=== PATIENT | male | born 1950 | race Caucasian/White ===

== ENCOUNTER 2017-08-17 19:49 | Emergency (ER) | payer OTHER ==
[~2017-08-17] VITALS: Ht 170.2 cm; Wt 70.3 kg
[~2017-08-17 19:49] MED LIST: ALLERGY RELIEF60 MG PO; BENZONATATE200 MG PO; CELEXA20 MG; CELEXA40 MG PO; CYMBALTA60 MG PO; IBUPROFEN 800800 M1 PO; LOPRESSOR50 PO; PNV FOLIC ACID1 EACH PO; REMERON15 M2 PO; TOPROL XL50 MG PO; TYLENOL325 MG PO; VITAMIN B-1100 M1 PO
== END 2017-08-17 21:43 | disposition home or self-care (01) ==
LOC: ER 19:49
DX: F10.129 Alcohol abuse with intoxication, unspecified (principal); F41.9 Anxiety disorder, unspecified; I12.9 Hypertensive chronic kidney disease with stage 1 through stage 4 chronic kidney disease, or unspecified chronic kidney disease; N18.9 Chronic kidney disease, unspecified; J44.9 Chronic obstructive pulmonary disease, unspecified

== ENCOUNTER 2021-04-14 15:33 | Inpatient (IN) | payer OTHER ==
[~2021-04-14] VITALS: Ht 180.3 cm; Wt 68.0 kg
--- NOTE | ~2021-04-14 | EMS ---
[address] [address] EMS Patient Care Report Name: FRANCIE BEATTY Room #: REG [facility].#: [id number] Admission: 04/14/21 Attend Phys: Discharge: Date of : 52 Report #: [id number] THIS REPORT FOR: //name// Report Transmitted: 04/14/2021 17:12 EMS Care Summary [place], [place]/[facility] Incident [id number] @ 04/14/2021 15:00 Incident Location [address] [place], [place] [id number] Patient FRANCIE BEATTY Male, 70 Years 1950 Patient Address [address] [place], [place] [id number] Patient History Alcohol Abuse, Patient Allergies No known allergies, Patient Medications None Reported, Chief Complaint WEAKNESS, ALCOHOL WITHDRAWL Disposition Transported No Lights/[place] Dispatch Reason Sick Person Transported To [facility] Narrative PT IS SITTING OUTSIDE IN THE PARKING LOT. HE ADMITS TO BEING TOO WEAK TO GET UP. HE JUST WANTS TO GO BACK TO HIS APARTMENT. AFTER A DISCUSSION WITH THE PT ON HIS ABILITY TO CARE FOR HIMSELF IF ASSISTED BACK UPSTARIS, HE AGREES HE SHOULD GO TO THE ER. HE ADMITS TO BEING A DAILY DRINKER WITHOUT A DRINK FOR [address] [address] EMS Patient Care Report Name: FRANCIE BEATTY Room #: REG [facility].#: [id number] Admission: 04/14/21 Attend Phys: Discharge: Date of : 52 Report #: [id number] THREE DAYS. HE ALSO ADMITS TO NOT EATING OR DRINKING IN ABOUT A WEAK. HE HAS NO COMPALAINTS OF PAIN. EN ROUTE TO THE ER THERE ARE NO CHANGES. PT IS TRANSPORTED WITH [facility]. CARE TO RN. Initial Vitals @15:18GCS: 15, @15:18P: 102,R: 16,BP: 105/66,Pain: 0/10,GCS: 15,Revised Trauma: 12, @15:19P: 103,R: 18,BP: 99/62,Pain: 0/10,GCS: 15,SpO2: 98,Revised Trauma: 12, Assessments @15:23MENTAL:No Abnormalities,SKIN:Jaundiced,Pale,HEENT:Head/Face: No Abnormalities,Neck/Airway: No Abnormalities,LUNG SOUNDS:General: No Abnormalities,ABDOMEN:General: No Abnormalities,PELVIS//GI:No Abnormalities,EXTREMITIES:Left Leg: Weakness,Left Arm: Weakness,Right Leg: Weakness,Right Arm: Weakness,PULSE:Radial: 2+ Normal,NEURO: Impression Generalized Weakness Procedures @15:18ALS AssessmentResponse: UnchangedSucceeded Timeline 14:59,Call Received 14:59,Dispatch Notified 15:00,Dispatched 15:01,En Route 15:14,On Scene 15:15,At Patient 15:18,BP: 105/66 M,PULSE: 102,RR: 16 R,SPO2: Ox,ETCO2: ,BG: ,PAIN: 0,GCS: 15, 15:18,ALS Assessment,Response: UnchangedSucceeded, 15:18,BP: / M,PULSE: ,RR: R,SPO2: Ox,ETCO2: ,BG: ,PAIN: ,GCS: 15, 15:19,BP: 99/62 M,PULSE: 103,RR: 18 R,SPO2: 98 Ox,ETCO2: ,BG: ,PAIN: 0,GCS: 15, 15:22,Depart Scene 15:34,At Destination 16:05,Call Closed Disclaimer v1.1 Copyright 2020 [employer] This EMS Care Summary contains data elements from the applicable legal record (which may be displayed differently). It is designed to provide pertinent information for the following purposes: continuity of care, clinical quality, and state data reporting. The complete legal record is available to ED staff and administrators of the receiving hospital in [employer]'s Patient Tracker. All data is provided "as is."
[~2021-04-14 15:33] MED LIST changes: +NORCO 5-325 TA1 EACH PO
[2021-04-14 15:34] VITALS: BP 106/58
[2021-04-14 16:05] LABS: ABSOLUTE NEUTROPHILS 6.1 thou/uL (1.4-8.2); EOSINOPHILS 1.3 % (0.0-3.0); HEMATOCRIT 32.5 % (42.0-52.0); HEMOGLOBIN 11.3 gm/dL (14.0-18.0); LYMPHOCYTES 15.2 % (24.0-44.0); MCH 36.1 pg (26.0-34.0); MCHC 34.9 g/dL (28.0-37.0); MCV 103.7 fL (80.0-100.0); MONOCYTES 9.9 % (1.0-8.0); PLATELET COUNT 131 thou/uL (150-400); POLYS 72.6 % (36.0-66.0); RBC 3.13 mil/uL (4.50-6.00); RDW 15.3 % (10.5-14.5); WBC 8.4 thou/uL (4.0-11.0)
[2021-04-14 16:20] LABS: ALBUMIN 3.8 g/dL (3.4-5.0); CALCIUM 9.7 mg/dL (8.5-10.1); CREATININE 1.7 mg/dL (0.7-1.3); TOTAL PROTEIN 7.9 g/dL (6.4-8.2)
[2021-04-14 16:21] LABS: POTASSIUM 2.9 mmol/L (3.5-5.1)
[2021-04-14 20:49] LABS: PHOSPHORUS 1.7 mg/dL (2.6-4.7)
[2021-04-14 21:16] LABS: FOLIC ACID 4.2 ng/mL (8.6-58.9)
[2021-04-15 06:13] VITALS: BP 117/34
[2021-04-15 06:28] LABS: CALCIUM 8.4 mg/dL (8.5-10.1); CREATININE 1.2 mg/dL (0.7-1.3); POTASSIUM 3.7 mmol/L (3.5-5.1)
[2021-04-15 06:49] VITALS: BP 119/41
--- NOTE | 2021-04-15 07:13 | EKG ---
[address] [address] ELECTROCARDIOGRAM REPORT Name: FRANCIE BEATTY Tess Room #: 362-P ADM IN M.R.#: [id number] Admission: 04/14/21 Attend Phys: Mu Landeros MD Discharge: Date of : 52 Report #: [id number] [facility] ED Test Date: 2021-04-14 Test Time: 20:19:16 Pat Name: FRANCIE BEATTY Department: Room: 362 Gender: M Telephone Cleaner: yoseph : 1950 Requested By: Althea Sánchez Order Number: [id number] MD: Steffen Don Measurements Intervals [place] Rate: 67 P: -32 [place]: 149 QRS: -40 QRSD: 105 T: 12 QT: 401 QTc: 424 Interpretive Statements Sinus rhythm Left anterior fascicular block Compared to ECG 03/07/2011 13:25:57 Left anterior fascicular block now present Left-axis deviation no longer present Electronically Signed On 04-15-2021 7:13:14 CDT by Steffen Don [email or web address] <ELECTRONICALLY SIGNED> By: Steffen Don MD, [facility] 04/15/21 0713 18 18 Steffen Don MD, [facility] /EPI
[2021-04-15 08:10] VITALS: BP 130/69
--- NOTE | 2021-04-15 15:15 | NUR ---
INITIAL ASSESSMENT: Received consult for discharge planning. ANDRES reviewed chart and spoke with nursing and attending physician. Pt was admitted from home due to falls/debility. Pt with hx of daily ETOH use. ANDRES met with pt at bedside. Introduced role of SW. Pt is alert/orientated x 4. Pt reports he lives at home alone in an apt. Pt states there are 26 steps to get up to his apt. No elevator access available. Pt has a cane and states he normally is able to navigate the stairs. No hx of HH services. Pt has been on [facility] in the past. Pt's PCP is Dr. Garcia. Pt states that his sister, Eve, is supportive. Pt has had both [employer] vaccines ([place]). Pt states he is ready to discharge home. SW discussed possible HH services with pt. Pt states he will think about it. SW is following to assist as needed with discharge planning.
[2021-04-15 15:42] VITALS: BP 114/63
--- NOTE | 2021-04-15 17:58 | NUR ---
PATIENT ARRIVED THIS MORNING FROM ER TO ROOM 362 CCU STATUS WITHOUT COMPLICATION. ADMISSION DATABASE COMPLETED, INFORMATION FROM PATIENT. ORDERS REVIEWED AND INITATED. QUESTIONS AND CONCERNS WERE ADDRESSED. PATIENT'S SISTER CALLED AND WAS UPDATED OVER THE PHONE.
[2021-04-15 20:25] VITALS: BP 132/64
[2021-04-16 04:14] VITALS: BP 128/60
[2021-04-16 05:24] LABS: HEMATOCRIT 29.9 % (42.0-52.0); HEMOGLOBIN 10.3 gm/dL (14.0-18.0); MCH 36.3 pg (26.0-34.0); MCHC 34.5 g/dL (28.0-37.0); MCV 105.3 fL (80.0-100.0); RBC 2.84 mil/uL (4.50-6.00); RDW 14.8 % (10.5-14.5); WBC 6.4 thou/uL (4.0-11.0)
[2021-04-16 05:33] LABS: ALBUMIN 3.1 g/dL (3.4-5.0); CALCIUM 8.3 mg/dL (8.5-10.1); MAGNESIUM 1.3 mg/dL (1.8-2.4); POTASSIUM 3.5 mmol/L (3.5-5.1); TOTAL BILIRUBIN 0.8 mg/dL (0.2-1.0); TOTAL PROTEIN 6.6 g/dL (6.4-8.2)
[2021-04-16 07:49] VITALS: BP 108/59
[2021-04-16] MEDS ORDERED: PRENATAL PO (13:33)
[2021-04-16] MEDS ORDERED: VITAMIN B-1100 M2 PO (13:33)
[2021-04-16] MEDS ORDERED: LORAZEPAM 1 MG T1 MG PO (13:33)
[2021-04-16] MEDS ORDERED: PROAIR HFA8.5 GM INH (13:33)
[2021-04-16] MEDS ORDERED: PEPCID20 MG PO (13:33)
[2021-04-16 14:21] VITALS: BP 108/59
--- NOTE | 2021-04-16 14:30 | NUR ---
DISCHARGE NOTE: ANDRES reviewed chart and spoke with nursing and attending physician. Pt is medically stable for discharge home today with HH services. ANDRES met with pt at bedside to discuss discharge plan. Pt is agreeable with having HH services. Options provided for HH agencies. No preference voiced. ANDRES confirmed pt's home address and phone number. Pt states he will need transportation home. SW offered to call his sister to provide update. Pt declines offer and states that he keeps her updated. ANDRES notified [facility] liaison of new referral. Info faxed to the office. ANDRES faxed finalized discharge orders/summary to HH. Notified liaison. Contact info for HH placed in pt's discharge summary. Cab voucher # [phone] provided. Nursing to call cab when pt is ready for discharge. No additional SW needs identified at this time, but is available to assist should needs arise.
[2021-04-16 15:27] VITALS: BP 108/59
--- NOTE | 2021-04-16 15:57 | NUR ---
BPCI letter and preferred provider list provider to patient, lives in home setting
--- NOTE | 2021-04-16 15:58 | NUR ---
BPCI letter and preferred provider list provided to patient and family, lives in long term setting
--- NOTE | 2021-04-16 16:04 | NUR ---
CLARIFICATION - incorrect notation placed on last note - correction is patient does live in home setting
--- NOTE | 2021-04-16 16:20 | NUR ---
PT DISCHARGED TO HOME WITH HOME HEALTH. CAB VOUCHER GIVEN TO PATIENT...INSTRUCTED ON IMPORTANCE OF ALCOHOL CESSASATION.
== END 2021-04-16 16:25 | disposition home health service (06) | DRG 682 ==
LOC: ER 15:33 → 3W 19:58 → EROBS 19:58 → 3W 04-15 07:04
PROVIDERS: Emergency Medicine; Nurse Practitioner Family; ADMIT Internal Medicine; ATTEND Internal Medicine
DX: N17.9 Acute kidney failure, unspecified (principal); G93.41 Metabolic encephalopathy; E87.2 Acidosis; E87.6 Hypokalemia; F10.129 Alcohol abuse with intoxication, unspecified; F41.9 Anxiety disorder, unspecified; F32.9 Major depressive disorder, single episode, unspecified; J44.9 Chronic obstructive pulmonary disease, unspecified; I12.9 Hypertensive chronic kidney disease with stage 1 through stage 4 chronic kidney disease, or unspecified chronic kidney disease; N18.9 Chronic kidney disease, unspecified; E83.42 Hypomagnesemia; F17.210 Nicotine dependence, cigarettes, uncomplicated; R53.81 Other malaise; Z79.899 Other long term (current) drug therapy
CPT/HCPCS: 10879

== ENCOUNTER 2021-08-09 14:04 | Inpatient (IN) | payer OTHER ==
[~2021-08-09] VITALS: Ht 170.2 cm; Wt 58.3 kg
--- NOTE | ~2021-08-09 | HC ---
[facility] [place] [address] CONSULTATION Name: FRANCIE BEATTY Room #: 439-P ADM IN M.R.#: [id number] Admission: 08/09/21 Attend Phys: Mu Landeros MD Discharge: Date of : 52 Report #: [id number] THIS REPORT FOR: cc: Segundo Garcia James A. DO Smithson, David G. MD ~ DATE OF SERVICE: 08/11/2021 HISTORY OF PRESENT ILLNESS: A 70-year-old white male admitted through the Emergency Room with mental status changes, severe generalized weakness, unable to get out of bed. House was noted to be in severe disarray. He was diagnosed with an [id number]-[id number] toxic metabolic encephalopathy, severe debilitation, depression, recurrent severe hypokalemia, leukocytosis, history of chronic alcohol abuse, COPD. We are seeing him in rehabilitation medicine consultation. PAST MEDICAL HISTORY: Includes anxiety, depression, hypertension, COPD, chronic kidney disease, smoker of one-half pack per day, alcohol use but he had indicated he had not been drinking alcohol of late and was just more depressed. History of chronic tobacco abuse. He likes to smoke cigars. MEDICATIONS: Please see the full medication listing. ALLERGIES: No known drug allergies. HABITS: As noted above. Claims he has not had any recent alcohol, likes to smoke cigars. SOCIAL HISTORY: Lives alone, apartment 26 steps, used a cane in the community, did some furniture walking, is noted to have parent as support. When paramedics arrived on the scene, the patient was noted to be severely unkempt and the house in significant disarray. PHYSICAL EXAMINATION: GENERAL: He is a 70-year-old, slender, white male, in no obvious distress. VITAL SIGNS: Last recorded temperature 36.5, pulse 65, respirations 18, blood pressure 106/75. NEUROLOGIC: The patient is alert. He will follow basic 1-step commands. Some latency to his responses is noted. Facies are symmetric. Functional range of motion of both upper extremities, strength is a grade 4-/5. DTRs are trace to 1. His lower extremities, no focal calf swelling. Functional range of motion with strength grade 3+ to 4-/5. He was standby assistance to come to stand, min assist ambulated short distance with a front-wheeled walker. He is needing mod assist for lower body dressing and OT. He does have some mild cognitive and memory deficits. ASSESSMENT: A 70-year-old male with the following problems: [address] [address] CONSULTATION Name: FRANCIE BEATTY Room #: 439-P [facility] IN .R.#: [id number] Admission: 08/09/21 Attend Phys: Mu Landeros MD Discharge: Date of : 52 Report #: [id number] 1. Toxic metabolic encephalopathy that appears to be improving. 2. Generalized weakness and debilitation. 3. Depression. Psychiatry is consulted with his altered mental status. 4. Recurrent severe hypokalemia. 5. Leukocytosis. 6. History of chronic alcohol abuse. Denies any recent alcohol abuse. 7. Hypertension. 8. Chronic obstructive pulmonary disease, likes to smoke cigars. PLAN: The patient is a candidate for an acute [address] [place] [address] inpatient rehabilitation stay. We would anticipate a short length of stay with the goal of improving strength and endurance and cognition. He does have 26 steps up to his apartment and only has limited supports, so he will need to further improve as far as overall endurance and independence. Thank you for asking us to assist in this patient's care. By: 1236 [id number] Fede David MD /nt
--- NOTE | ~2021-08-09 | EMS ---
[address] [address] EMS Patient Care Report Name: FRANCIE BEATTY [id number] Admission: 08/09/21 Attend Phys: Discharge: Date of : 52 Report #: [id number] THIS REPORT FOR: //name// Report Transmitted: 08/09/2021 14:25 EMS Care Summary [place], [place]/[facility] Incident [id number] @ 08/09/2021 13:19 Incident Location [address] [place] [address] Patient FRANCIE BEATTY Male, 70 Years 1950 Patient Address [address] [place], [place] [id number] Patient History Alcohol Abuse, Patient Medications None Reported, Chief Complaint diarrhea Disposition Transported No Lights/[place] Dispatch Reason Sick Person Transported To [facility] Narrative pt found seated on couch covered in dried diarrhea. friends came over to do a welfare check and called for ambulance. pt is a&o and initially states he will not go to ER because he "hates doctors". he reports no appetite and diarrhea for 1 month. he now c/o general weakness and dizziness when he ambulates. pt [facility] [address] [place] [address] EMS Patient Care Report Name: FRANCIE BEATTY Room #: REG [facility] Herman#: [id number] Admission: 08/09/21 Attend Phys: Discharge: Date of : 52 Report #: [id number] apt is covered in diarrhea. pt finally agrees to eval at [facility]. pt assist to cot, VS, IV, transport w/o change. Initial Vitals @13:40P: 77,R: 18,BP: 101/68,Pain: 0/10,GCS: 15,Glucose: 269,SpO2: 100,Revised Trauma: 12, Assessments @13:27MENTAL:No Abnormalities,SKIN:Other,HEENT:Head/Face: No Abnormalities,LUNG SOUNDS:General: Diarrhea,ABDOMEN:General: Diarrhea,PELVIS//GI:EXTREMITIES:PULSE:Radial: 2+ Normal,NEURO:Other, Impression Diarrhea Procedures @13:37StretcherResponse: Unchanged@13:47Saline Lock 10cc (20 ga) Site: Antecubital-RightResponse: UnchangedSucceeded@13:403-Lead ECGResponse: Unchanged@13:27ALS Assessment Timeline 13:17,Call Received 13:17,Dispatch Notified 13:19,Dispatched 13:20,En Route 13:25,On Scene 13:27,At Patient 13:27,ALS Assessment, 13:37,Stretcher,Response: Unchanged 13:40,3-Lead ECG,Response: Unchanged 13:40,BP: 101/68 M,PULSE: 77,RR: 18 R,SPO2: 100 Ox,ETCO2: ,B,PAIN: 0,GCS: 15, 13:47,Saline Lock 10cc 20 ga Site: Antecubital-Right,Response: UnchangedSucceeded, 13:49,Depart Scene 13:57,At Destination 14:23,Call Closed Disclaimer v1.1 Copyright 2020 [employer] This EMS Care Summary contains data elements from the applicable legal record (which may be displayed differently). It is designed to provide pertinent information for the following purposes: continuity of care, clinical quality, and state data reporting. The complete legal record is available to ED staff and administrators of the receiving hospital in [employer]'s Patient Tracker. All data is provided "as is."
[~2021-08-09 14:04] MED LIST changes: +LORAZEPAM 1 MG T1 MG PO; +PEPCID20 MG PO; +PRENATAL PO; +PROAIR HFA8.5 GM INH; +VITAMIN B-1100 M2 PO
[2021-08-09 14:05] VITALS: BP 92/56
[2021-08-09 14:47] LABS: ABSOLUTE NEUTROPHILS 10.5 thou/uL (1.4-8.2); BASOPHILS 0.5 % (0.0-2.0); EOSINOPHILS 1.5 % (0.0-3.0); HEMATOCRIT 27.9 % (42.0-52.0); HEMOGLOBIN 9.6 gm/dL (14.0-18.0); LYMPHOCYTES 8.6 % (24.0-44.0); MCH 36.3 pg (26.0-34.0); MCHC 34.4 g/dL (28.0-37.0); MCV 105.5 fL (80.0-100.0); MONOCYTES 3.2 % (1.0-8.0); PLATELET COUNT 117 thou/uL (150-400); POLYS 86.2 % (36.0-66.0); RBC 2.64 mil/uL (4.50-6.00); RDW 17.2 % (10.5-14.5); WBC 12.1 thou/uL (4.0-11.0)
[2021-08-09 15:08] LABS: ALBUMIN 2.7 g/dL (3.4-5.0); CALCIUM 8.6 mg/dL (8.5-10.1); CREATININE 1.1 mg/dL (0.7-1.3); TOTAL BILIRUBIN 1.1 mg/dL (0.2-1.0); TOTAL PROTEIN 6.6 g/dL (6.4-8.2)
[2021-08-09 15:12] LABS: POTASSIUM 2.9 mmol/L (3.5-5.1)
--- NOTE | 2021-08-09 16:29 | EKG ---
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: PHIL : 1950 Requested By: Nadeem Tavarez Order Number: [id number] MD: Steffen Don Measurements Intervals [place] Rate: 73 P: -39 SD: 124 QRS: -20 QRSD: 101 T: 89 QT: 405 QTc: 447 Interpretive Statements Sinus rhythm Borderline left axis deviation Low voltage, extremity leads Abnormal R-wave progression, early transition Baseline wander in lead(s) V6 Compared to ECG 04/14/2021 20:19:16 Low QRS voltage now present ST (T wave) deviation now present Left anterior fascicular block no longer present Electronically Signed On 08-09-2021 16:29:42 CDT by Steffen Don [email or web address] <ELECTRONICALLY SIGNED> By: Steffen Don MD, [facility] 08/09/21 1629 1417 1417 Steffen Don MD, [facility] /EPI
[2021-08-09 19:17] LABS: URINE BILIRUBIN 2+ (Negative); URINE BLOOD TRACE (Negative); URINE CLARITY CLEAR; URINE COLOR BROWN; URINE GLUCOSE-RANDOM* NEGATIVE (Negative); URINE KETONES TRACE (Negative); URINE LEUKOCYTES-REFLEX NEGATIVE (Negative); URINE PROTEIN (DIPSTICK) TRACE (Negative)
[2021-08-09 19:21] LABS: FOLIC ACID 1.4 ng/mL (8.6-58.9)
[2021-08-09 19:24] LABS: AMP/METHAMP Negative (Negative); BARBITURATES Negative (Negative); BENZODIAZEPINES Negative (Negative); COCAINE Negative (Negative); METHADONE Negative (Negative); OPIATES Negative (Negative); PCP Negative (Negative)
[2021-08-09 19:37] LABS: ICTOTEST (BILI CONFIRMATORY) Negative (Negative); URINE NITRITE-REFLEX POSITIVE (Negative)
[2021-08-09 19:40] LABS: SQUAMOUS 0-3 Few /LPF (0-3)
[2021-08-09 19:41] LABS: BACTERIA-REFLEX 1-9 Few /HPF (None Seen); CASTS None Seen /LPF (None Seen); CRYSTALS None Seen /LPF (None Seen); URINE RBC 3-10 Few /HPF (NONE SEEN); URINE WBC-REFLEX 0-5 Rare /HPF (0-5)
[2021-08-09 22:19] VITALS: BP 102/46
[2021-08-10 02:13] VITALS: BP 109/62
--- NOTE | 2021-08-10 04:17 | NUR ---
RECEIVED CARE OF THIS PATIENT AT 2307 FROM ED VIA CART ACCOMPANIED BY ED PERSONEL. PATIENT ALERT AND ORIENTED X4 WITH PERIODS OF FORGETFULLNESS. PATIENT SEMINOLE. IV IN BOTH AC'S. STATES HAS NOT HAD A STOOL FOR OVER A WEEK. HAD DRIED BM ON BOTH LOWER EXT. CLEANED UP AND PUT SCD'S ON. IN ISO FOR R/O C-DIFF. DENIES PAIN. SLEPT LITTLE THIS SHIFT.
[2021-08-10 04:26] VITALS: BP 118/54
[2021-08-10 07:28] VITALS: BP 110/61
[2021-08-10 08:09] LABS: ABSOLUTE NEUTROPHILS 8.2 thou/uL (1.4-8.2); BASOPHILS 0.7 % (0.0-2.0); EOSINOPHILS 2.2 % (0.0-3.0); HEMATOCRIT 26.6 % (42.0-52.0); LYMPHOCYTES 12.9 % (24.0-44.0); MCH 36.3 pg (26.0-34.0); MCHC 33.8 g/dL (28.0-37.0); MCV 107.6 fL (80.0-100.0); MONOCYTES 5.1 % (1.0-8.0); PLATELET COUNT 90 thou/uL (150-400); POLYS 79.1 % (36.0-66.0); RBC 2.48 mil/uL (4.50-6.00); WBC 10.4 thou/uL (4.0-11.0)
[2021-08-10 08:44] LABS: ALBUMIN 2.4 g/dL (3.4-5.0); CALCIUM 8.3 mg/dL (8.5-10.1); CREATININE 0.8 mg/dL (0.7-1.3); MAGNESIUM 1.8 mg/dL (1.8-2.4); POTASSIUM 3.6 mmol/L (3.5-5.1); TOTAL PROTEIN 5.8 g/dL (6.4-8.2)
--- NOTE | 2021-08-10 10:20 | NUR ---
ASSUMED CARE OF PT AT 0700 THIS MORNING. PT WAS ADMITTED FOR SEVERE DEHYDRATION, ETOH ABUSE. PT IS A/OX4 WITH SKIN INTACT TENTING PRESENT. ASSESSMENTS NOTED IN CHART AND OTHERWISE UNREMARKABLE. FALL PRECAUTIONS ARE IN PLACE, CALL LIGHT AND OTHER NEEDS ARE IN REACH. MEDS AND TX GIVEN NEEDED AND SCHEDULED. WILL MONITOR AND NOTE ANY CHANGES.
[2021-08-10 10:21] LABS: ANISOCYTOSIS 1+; MACROCYTES 2+; PLATELET ESTIMATE SLIGHTLY DECREASED
[2021-08-10 14:58] VITALS: BP 90/47
--- NOTE | 2021-08-10 16:15 | NUR ---
ASSESSMENT: CM REVIEWED CHART AND SPOKE WITH PATIENT AT THE BEDSIDE. PT WAS ADMITTED DUE TO HYPOKALEMIA, LACTIC ACIDOSIS. PER RECORDS EMS REPORTED THAT PATIENT WAS LYING IN STOOL AND UNKEMPT AND UNABLE TO CARE FOR SELF. PT REPORTS THAT HE LIVES IN AN APT ALONE. PT REPORTS ABOUT 26 STEPS WITH A HANDRAIL TO ENTER HIS APT. PT REPORTS HE IS ABLE TO GET UP THE STEPS WITH HIS CANE BUT HAS EXTREME DIFFICULTY WITH THIS. PT REPORTS HE AMBULATES IN THE HOME NORMALLY INDEPENDENTLY BUT DOES USE A CANE OUTSIDE THE HOME. WHEN ASKED HOW PATIENT GETS GROCERIES HE STATES HE DRIVES HIMSELF. PER RECORDS PATIENT HAS BEEN TO [facility] IN THE PAST AND HAD [facility] IN THE PAST. CM DISCUSSED ROLE. CM DISCUSSED RECOMMENDATION FOR SNF AND PT STATES HE WILL HAVE TO THINK ABOUT IT. CM PROVIDED PATIENT WITH SNF OPTIONS TO REVIEW. CM ALSO ATTEMPTED TO REACH PTS SISTER JEAN CLAUDE [phone] BUT UNABLE TO REACH AT THIS TIME AND VM WAS LEFT.
[2021-08-10 19:45] VITALS: BP 98/57
--- NOTE | 2021-08-11 02:06 | NUR ---
ASSUMED CARE OF PT AT SHIFT CHANGE. PT IS AOX3-4 AND LETS NEEDS BE KNOWN. FALL PRECAUTION IN PLACE. PT DENIED PAIN, NAUSEA OR SOA. ASSESSMENT CHARTED. PT IS INCT AT TIMES. IVF AND ABX TREATMENT CONTINUED. NO S/S OF ETOH WITHDRAWAL NOTED THIS SHIFT. PT WAS ABLE TO GET COMFORTABLE AND SLEEP PART OF THE SHIFT. VSS AND NO S/S OF ACUTE DISTRESS. WILL CONTINUE TO MONITOR FOR CHANGES.
[2021-08-11 03:30] VITALS: BP 120/36
[2021-08-11 07:09] VITALS: BP 88/52
[2021-08-11 12:11] VITALS: BP 106/75
--- NOTE | 2021-08-11 15:35 | NUR ---
ON-GOING ASSESSMENT: CM REVIEWED CHART. CM PROVIDED PATIENT WITH SNF LIST FOR HIM TO REVIEW. PT REPORTS HE WILL LOOK IT OVER. [facility] LI[facility]ON CONTACTED CM AND [facility] CONSULT WAS PLACED TODAY, MET WITH PATIENT AND [facility] LIASON STATING THEY CAN ACCEPT HIM WHEN STABLE. CM REACHED OUT TO ATTENDING. PSYCH IS ALSO FOLLOWING AND HE REPORTS WE CAN ASSESS SITUATION TOMORROW TO SEE IF PATIENT IS MEDICALLY STABLE. CM NOTIFIED LIASON FROM [facility]. CM WILL CONTINUE TO FOLLOW TO ASSIST NEEDED.
[2021-08-11 15:48] VITALS: BP 108/74
--- NOTE | 2021-08-11 15:55 | NUR ---
ASSUMED CARE AT SHIFT CHANGE. PT A/0 X 4. CALM AND PLESANT THIS SHIFT, OCCASSIONALLY FUSSY. PT SISTER CALLED AND UPDATED PER PT APPROVAL WITH LIMITED INFORMATION. [facility] CONSULT PLACED TODAY. PT UP TO COMMODE X 1 ASSIST. HAD BM THIS EARLY AFTERNOON. DENIES PAIN. LABS NOTED. ASSESSMENTS PER CHART. WILL CONT TO MONITOR AND FOLLOW POC.
[2021-08-11 19:10] VITALS: BP 95/66
--- NOTE | 2021-08-12 02:49 | NUR ---
PT IS A/O X4 WITH SOME FORGETFULLNESS. GETS UP X1 TO THE BR. CALLS OUT APPROPRIATELY FOR ASSISTANCE. VSS. AFEBRILE. MEDICATIONS GIVEN PER MAR. FALL PRECAUTIONS IN PLACE, CALL LIGHT IS WITHIN REACH.
[2021-08-12 04:21] VITALS: BP 105/53
[2021-08-12 06:35] LABS: HEMATOCRIT 28.5 % (42.0-52.0); HEMOGLOBIN 9.4 gm/dL (14.0-18.0); MCH 35.6 pg (26.0-34.0); MCV 107.9 fL (80.0-100.0); RBC 2.65 mil/uL (4.50-6.00); RDW 17.2 % (10.5-14.5); WBC 13.7 thou/uL (4.0-11.0)
[2021-08-12 07:15] VITALS: BP 111/59
[2021-08-12 09:09] LABS: CALCIUM 8.5 mg/dL (8.5-10.1); CREATININE 0.9 mg/dL (0.7-1.3); MAGNESIUM 1.1 mg/dL (1.8-2.4); POTASSIUM 5.6 mmol/L (3.5-5.1)
[2021-08-12 11:41] VITALS: BP 90/52
--- NOTE | 2021-08-12 12:08 | NUR ---
DISCHARGE NOTE: ANDRES reviewed chart and spoke with nursing and attending physician. Pt is medically stable for discharge today. [facility] has accepted pt and can admit pt today. ANDRES met with pt at bedside to provide update and discuss discharge plan. Pt is aware and agreeable with the discharge plan. SW offered to update his sister. Pt states he will call her when he is moved upstairs to [facility]. Rehab CM to follow and assist as needed with discharge planning.
[2021-08-12] MEDS ORDERED: PEPCID20 MG PO (14:29)
[2021-08-12] MEDS ORDERED: MAGNESIUM400 MG PO (14:29)
[2021-08-12] MEDS ORDERED: WELLBUTRIN XL150 MG PO (14:29)
[2021-08-12] MEDS ORDERED: AUGMENTIN 875-1 EACH PO (14:31)
--- NOTE | 2021-08-12 15:21 | NUR ---
TODAY THIS PT HAS BEEN NSR ON THE HEART MONITOR WITH NO STATED PAIN AND STABLE VS. HE IS GEARING UP TO BE D/C TO [facility] REPORT HAS NOT BEEN GIVEN YET. HE DID REFUSE HIS MORNING MEDS WITH ME EVEN AFTER 3 TRIES. HE OTHERWISE HAS HAD A COUPLE OF INCONTINENT OCCURENCES AND TE OTHER TIMES HE CALLED OUT FOR ASSISTANCE. HE IS NOW WAITING FOR D/C.
== END 2021-08-12 16:51 | DRG 91 ==
LOC: ER 14:04 → 4S 17:16 → EROBS 17:16 → ER 22:20 → 4S 22:20
PROVIDERS: Emergency Medicine; ADMIT Internal Medicine; ATTEND Internal Medicine
DX: G92 Toxic encephalopathy (principal); E43 Unspecified severe protein-calorie malnutrition; J18.9 Pneumonia, unspecified organism; E87.2 Acidosis; J44.0 Chronic obstructive pulmonary disease with (acute) lower respiratory infection; F32.9 Major depressive disorder, single episode, unspecified; E87.6 Hypokalemia; D72.829 Elevated white blood cell count, unspecified; F10.10 Alcohol abuse, uncomplicated; D69.6 Thrombocytopenia, unspecified; Z20.822 Contact with and (suspected) exposure to COVID-19; F41.9 Anxiety disorder, unspecified; R53.81 Other malaise; D63.8 Anemia in other chronic diseases classified elsewhere; I12.9 Hypertensive chronic kidney disease with stage 1 through stage 4 chronic kidney disease, or unspecified chronic kidney disease; N18.9 Chronic kidney disease, unspecified; Z87.81 Personal history of (healed) traumatic fracture; Z68.20 Body mass index [BMI] 20.0-20.9, adult; Z91.19 Patient's noncompliance with other medical treatment and regimen
CPT/HCPCS: 10100

== ENCOUNTER 2021-08-12 15:08 | Inpatient (IN) | payer OTHER ==
[~2021-08-12] VITALS: Ht 170.2 cm; Wt 59.4 kg
[~2021-08-12 15:08] MED LIST changes: +AUGMENTIN 875-1 EACH PO; +MAGNESIUM400 MG PO; +WELLBUTRIN XL150 MG PO
[2021-08-12 19:46] VITALS: BP 102/51
--- NOTE | 2021-08-13 00:54 | NUR ---
PATIENT IS ALERT AND ORIENTED. HE AMBULATES WITH GAIT BELT. MODERATE ASSIT WITH CARE. ABLE TO VERBALIZE NEEDS.HE TOOK HIS MEDS WHOLE AFTER SOME REFUSAL. BS ACTIVE X4 QUAD.LUNGS ARE CLEAR.HE USES THE URINAL. HE IS CONTINENT OF BOWEL. DENIES PAINS AT THIS TIME. CALL IGHT AT REACH
[2021-08-13 05:02] LABS: MCH 35.8 pg (26.0-34.0); MCHC 33.3 g/dL (28.0-37.0); MCV 107.5 fL (80.0-100.0); RBC 2.79 mil/uL (4.50-6.00); RDW 17.5 % (10.5-14.5); WBC 14.3 thou/uL (4.0-11.0)
[2021-08-13 06:17] LABS: POTASSIUM 4.8 mmol/L (3.5-5.1)
[2021-08-13 07:19] VITALS: BP 104/51
--- NOTE | 2021-08-13 08:45 | NUR ---
Chart review. New to acute rehab yesterday afternoon. 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 He was found lying in mess, Hx of Ethol use. Manage own medication, drives vehicle. acute rehab in the past, [facility] in the past. Dr Garcia is his primary care DRJerri Martin cont following as needed for dc needs.
[2021-08-13 19:15] VITALS: BP 92/49
--- NOTE | 2021-08-14 02:01 | NUR ---
assumed care approx 1900 evening 08/13. pt lying in bed with head of bed elevated at change of shift resting and watching tv. pt alert and oriented x4, pleasant and cooperative. pt took hs meds with water tolerating well. pt appears to be sleeping soundly. bed alarm on and call light in reach. will continue to monitor.
[2021-08-14 08:00] VITALS: BP 112/85
--- NOTE | 2021-08-14 09:17 | NUR ---
PT WORKING WITH ST. PT TOOK MEDS WITH THIN WATER AND NOT ISSUES. PT WAS SAYING HE WAS DRIBBLING LAST NIGHT OF URINE AND WAS WANTING TO KNOW WHAT MEDS HE WAS TAKING THAT WOULD CAUSE THAT, DIDN'T SEE ANY MEDS THAT WOULD MAKE HIM URINATE MORE.
--- NOTE | 2021-08-14 13:24 | NUR ---
PT SISTER CAME TO SEE HIM. SHE BROUGHT DPOA PAPERWORK AND SIGNED ADMIT PAPERS. SHE STATED HE LIVES ON UPPER APT WITH 20+ STEPS TO UPSTAIRS. SHE STATED HE CAN GET ETOH WITHOUT ANY ISSUES, HAS PROBLEM GETTING GROCERIES UP STAIRS. SHE MENTIONED HE CAN HAVE HIS GROCERIES DELIVERED. SHE STATED HE IS ON WAITING LIST FOR DOWNSTAIRS APT, PER PT. SHE SAID HE DOESN'T TELL THE TRUTH ALL THE TIME. PT STATED HE HAS A PHD, ACTUALLY PT HAS HE HAS A MASTERS DEGREE.
[2021-08-14 19:05] VITALS: BP 130/84
--- NOTE | 2021-08-14 21:00 | NUR ---
pt incontinent of urine this shift x 2
--- NOTE | 2021-08-14 22:35 | NUR ---
MULTIPLE ATTEMPTS MADE TO EXPLAIN MEDICATIONS AND ENCOURAGE PT TO TAKE HS PEPCID, MAGNESIUM, AND AMIXOCILLIN. PT ADAMANTLY REFUSED, STATING THAT HE WAS NOT TAKING ANYTHING UNTIL HE HAD A CHANCE TO TALK TO THE DOCTOR TOMORROW ABOUT HIS URINARY INCONTINENCE. HE STATED THAT THE MEDICATIONS ARE CAUSING THIS, AND DESPITE EXPLANATION, WILL NOT TAKE ANYTHING FOR THIS NURSE OR THE HOSUE RN BEHAVIORAL HEALTH. DANYA GRIFFITH HAS BEEN NOTIFIED VIA [facility] MESSAGE THIS EVENING.
[2021-08-15 07:15] VITALS: BP 99/48
--- NOTE | 2021-08-15 19:07 | NUR ---
PT REFUSES MEDICATIONS STATING THAT WE ARE GIVING HIM SOMETHING THAT MAKES HIM INCONTINENT.
[2021-08-15 19:14] VITALS: BP 108/66
--- NOTE | 2021-08-16 02:32 | NUR ---
assumed care approx 1900 evening 08/15. pt lying in bed sleeping at change of shift. pt awoke to take hs meds and then back to sleep. pt appears to be sleeping soundly. bed alarm on and call light in reach. will continue to monitor.
--- NOTE | 2021-08-16 02:35 | NUR ---
pt sitting up in bed at change of shift watching tv. pt alert and oriented x4, refusing hs meds. pt voiding per urinal. pt appears to be sleeping soundly, bed alarm on and call light in reach. will continue to monitor.
[2021-08-16 08:00] VITALS: BP 111/71
--- NOTE | 2021-08-16 10:25 | NUR ---
ASSUMED CARE AT 0700. PATIENT IS ALERT AND ORIENTED X4. PATIENT CONTRERAS'S. PATIENT GETS TIRED VARY EASILY. PATIENT IS UP WITH GAIT BELT AND WALKER AND ASSIST OF 1 STAFF. PATIENT IS REFUSING ALL MEDS. LABS ORDERED FOR A.M. ABD IS SOFT WITH BSX4. PATIENT HAD BM THIS A.M. FALL AND SAFETY PROTOCOLS IN PLACE. DENIES PAIN AT THIS TIME. CONTINUES TO PROGRESS TOWARDS D/C GOALS. WILL CONTINUE TO MONITER.
--- NOTE | 2021-08-16 14:53 | NUR ---
SPIRITUAL CARE CONSULT [id number] WAS COMPLETED ON 08/16/2021 BY THIS MINK FARMER. A VISIT WAS ATTEMPTED ON 08/13/2021 BUT PATIET WAS WITH STAFF.
[2021-08-16 19:13] VITALS: BP 92/42
--- NOTE | 2021-08-16 23:49 | NUR ---
PATIENT CARE WAS RESUMED AT 1900.HE IS ALERT AND ORIENTED. ABLE TO VERBALIZE NEEDS. HE REFUSED HIS PM MEDS AND NURSE CONTINUED TO ENCORAGED AND HE TOOK THE PILLS WITH WATER. HE DENIES PAINS AND HE IS A MODERATE ASSIT WITH TRANSFER. BED IS LOW, LOCKED AND ALARMED. Q HOURLY ROUNDS ONGOING. CALL LIGHT AT [facility]
[2021-08-17 04:51] LABS: ABSOLUTE NEUTROPHILS 7.8 thou/uL (1.4-8.2); BASOPHILS 0.8 % (0.0-2.0); EOSINOPHILS 3.7 % (0.0-3.0); HEMOGLOBIN 8.5 gm/dL (14.0-18.0); LYMPHOCYTES 14.6 % (24.0-44.0); MCHC 33.9 g/dL (28.0-37.0); MONOCYTES 5.9 % (1.0-8.0); PLATELET COUNT 193 thou/uL (150-400); RDW 18.1 % (10.5-14.5); WBC 10.4 thou/uL (4.0-11.0)
[2021-08-17 05:13] LABS: MAGNESIUM 1.4 mg/dL (1.8-2.4); POTASSIUM 4.7 mmol/L (3.5-5.1)
[2021-08-17 10:19] VITALS: BP 111/53
--- NOTE | 2021-08-17 12:57 | NUR ---
team meeting, recommendation: has been refusing medication. Mom reported that he can't going home r/t his drinking problem and house is mess. Poor insight. Standby assist mobility. Has been working on step, has 23 + step at home. Needs assist with medication and finances. Refrain from drinking alcohol. family to remove alcohol from his home. No driving till cleared by coal crusher operator. Alcohol tx program. have food delivered to home. Dc 08/19 ( pt, ot, nursing, st and sw). Mod I in the room.
--- NOTE | 2021-08-17 16:50 | NUR ---
Chart review. Discussed during unit rounds and los with the hospitalist. Dx: hemoptysis, Hx of cancer. Has had some bleeding in the past years. She is resting with eyes closed. Called spouse elio, no answer. Bryan live in home, 5 steps to enter and 8 stairs inside. Normal independent when feeling ok. Been to acute rehab here, [facility] in March of 2020. [facility]. Current requiring oxygen per nasal cannula. No home oxygen. Will cont. following as needed for dc needs.
[2021-08-17 19:34] VITALS: BP 123/55
--- NOTE | 2021-08-18 04:04 | NUR ---
assumed care approx 1900 evening 08/17. pt sleeping at change of shift and sound asleep until approx 2200. pt refused to take hs meds. pt modified independent in room. call light in reach. will continue to monitor.
--- NOTE | 2021-08-18 09:30 | NUR ---
Earl sister Eve # [phone] returned cm voice message . Education on dcp for dc on 08/19/21, marjorie Wolff or [facility] will be fine. Tried to get his apartment cleaned but for 2 bedroom and all the mess it was $ 2000, and I don't have that. I would be nice if he did not drive since he drinks per Eve. Education on taking his keys so can't drive. Education on meals on wheel. All would be fine he quits drinking , just sad per Eve. Active listen and support during phone call. Referral sent to [place] [facility]. Will cont. following as needed for dc needs.
[2021-08-18 10:01] VITALS: BP 112/57
[2021-08-18 20:07] VITALS: BP 102/58
--- NOTE | 2021-08-19 01:58 | NUR ---
ASSESSED AT START OF SHIFT 1900. PT IN BED. REFUSED NIGHT TIME MEDS. NURSE EDUCATED HIM. PT STATES HIS GOING HOME TOMORROW AND WILL TAKE IT AT HOME. PT IS MOD I IN ROOM. CALL LIGHT AT REACH AND NO FURTHER SIGNS OF DISCOMFORT WILL CONT TO MONITOR TILL EOS.
[2021-08-19 08:00] VITALS: BP 99/71
[2021-08-19] MEDS ORDERED: VITAMIN B-1100 M2 PO (08:08)
[2021-08-19] MEDS ORDERED: VITAMIN D325 MC2 PO (08:08)
[2021-08-19] MEDS ORDERED: WELLBUTRIN XL150 MG PO ×2 (08:08→09:33)
[2021-08-19] MEDS ORDERED: FOLIC ACID1 MG PO (08:08)
[2021-08-19] MEDS ORDERED: MAGNESIUM400 MG PO ×2 (08:08→08:10)
[2021-08-19] MEDS ORDERED: PRENATAL PO (08:10)
[2021-08-19 09:28] VITALS: BP 102/58
--- NOTE | 2021-08-19 09:38 | NUR ---
[facility] unable to accept r/t no speech therapy and [facility] has no speech or sw able to assist carol. cm spoke with carol and referral to [facility] is ok ( pt, ot, st, nursing and sw). [facility] is able to accept for hh needs. Eliud left message with carol sister leah. Will cont following as needed for dc needs.
--- NOTE | 2021-08-20 13:52 | PLAN ---
[facility] [place] [address] REHAB UNIT PLAN OF CARE Name: FRANCIE BEATTY Room #: 510-P [facility] M.R.#: [id number] Admission: 08/12/21 Attend Phys: Fede David MD Discharge: 08/19/21 Date of : 52 Report #: [id number] THIS REPORT FOR: cc: Segundo Garcia James A. DO Smithson, David G. MD ~ PROGRESS NOTE-OVERALL PLAN OF CARE HISTORY OF PRESENT ILLNESS: He was seen earlier, was in no distress. Last recorded temperature 97.6, pulse 85, respirations 19, blood pressure 104/51. He was pleasant and cooperative, had good appetite when seen. No focal calf swelling. Appeared motivated in therapies. Transfers have been min assist with gait, min assist 150 feet with a standard cane. He has started to go up and down stairs. In occupational therapy, lower body dressing is mod assist with upper body dressing supervision. Speech therapy has seen him and he does have mild cognitive deficits with [id number]-[id number] memory deficits. ASSESSMENT: 1. Toxic metabolic encephalopathy. This appears to be improving. 2. Medical complexity with generalized debilitation. 3. Depression. 4. Electrolyte abnormalities with severe hypokalemia and hypomagnesemia. 5. Leukocytosis. 6. Hypertension. 7. Chronic obstructive pulmonary disease. 8. History of ETOH abuse. 9. Protein-calorie malnutrition. 10. Folate deficiency. PLAN: The overall plan of care is based on the pre-admit screen and information garnered from therapy assessments. 1. Estimated length of stay is probably around 10 days. 2. Medical prognosis is reasonably good. 3. Anticipated interventions include the interdisciplinary acute inpatient rehabilitation program. 4. Anticipated functional outcomes would be for the patient to become modified independent with transfers, mobility and ADLs, to be able go up and down stairs to improve as far as cognition, so that he can return back to the home setting. 5. Discharge destination would be back to the home setting where he lives in an apartment alone. 6. Expected therapy by discipline includes PT, OT and speech 1 hour per day each 5 days a week throughout the duration of the acute inpatient rehabilitation stay. ADDENDUM: The patient's prognosis for significant practical improvement within [address] [address] REHAB UNIT PLAN OF CARE Name: CLEOGUILLERMOAYADAmyFRANCIE Room #: 510-P [facility]#: [id number] Admission: 08/12/21 Attend Phys: Fede David MD Discharge: 08/19/21 Date of : 52 Report #: [id number] a reasonable period of time appears good. Given the patient's complex medical condition and risk of further medical complication, rehabilitation services could not be safely provided at a lower level of care such as a fpc facility. <ELECTRONICALLY SIGNED> By: Fede David MD 08/20/21 1352 [id number] Fede David MD /nt
--- NOTE | 2021-08-20 15:16 | NUR ---
Spoke with eddie , he did not answer his phone or his door. Cm tried calling him, and no answer. Spoke with eddie they going to put him on for visit tomorrow. Spoke with his sister leah and she spoke with him as well. Not sure if he completed meals on wheel.
== END 2021-08-19 17:00 | disposition home health service (06) | DRG 91 ==
LOC: SBH 15:08
PROVIDERS: Nurse Practitioner; Nurse Practitioner Family; ADMIT Physical Medicine & Rehabilitation; ATTEND Physical Medicine & Rehabilitation
DX: G92.8 Other toxic encephalopathy (principal); E43 Unspecified severe protein-calorie malnutrition; E87.1 Hypo-osmolality and hyponatremia; Z68.1 Body mass index [BMI] 19.9 or less, adult; F41.9 Anxiety disorder, unspecified; F32.9 Major depressive disorder, single episode, unspecified; J44.9 Chronic obstructive pulmonary disease, unspecified; N18.9 Chronic kidney disease, unspecified; F01.50 Vascular dementia, unspecified severity, without behavioral disturbance, psychotic disturbance, mood disturbance, and anxiety; R53.81 Other malaise; I12.9 Hypertensive chronic kidney disease with stage 1 through stage 4 chronic kidney disease, or unspecified chronic kidney disease; E87.6 Hypokalemia; E53.8 Deficiency of other specified B group vitamins; D72.829 Elevated white blood cell count, unspecified; D63.8 Anemia in other chronic diseases classified elsewhere; D69.6 Thrombocytopenia, unspecified; Z60.2 Problems related to living alone; F17.210 Nicotine dependence, cigarettes, uncomplicated; F10.10 Alcohol abuse, uncomplicated; E55.9 Vitamin D deficiency, unspecified; Z91.19 Patient's noncompliance with other medical treatment and regimen; Z68.20 Body mass index [BMI] 20.0-20.9, adult
CPT/HCPCS: 10112